=== PATIENT | male | born 2000 | race Hispanic/Latino ===

== ENCOUNTER 2021-04-05 01:52 | Emergency (ER) | payer SELFPAY ==
[~2021-04-05] VITALS: Ht 182.9 cm; Wt 129.3 kg
[2021-04-05 02:12] VITALS: BP 146/92
[2021-04-05] MEDS ORDERED: FAMOTIDINE 20MG VIAL IV ONE ×2 (02:30→02:39)
[2021-04-05] MEDS ORDERED: ALBUTEROL 0.083% 2.5 MG/3 ML INH IH ONE ×2 (02:30→04:00)
[2021-04-05] MEDS ORDERED: DiphenhydrAMINE HCL 50 MG/ML VIAL IV ONE (02:30)
[2021-04-05] MEDS ORDERED: SOLU-MEDROL 125MG VIAL IVP ONE (02:30)
[2021-04-05] MEDS ORDERED: SOLU-MEDROL 125MG VIAL ONE (02:39)
[2021-04-05] MEDS ORDERED: DiphenhydrAMINE HCL 50 MG/ML VIAL ONE (02:39)
[2021-04-05 03:35] VITALS: BP 133/81
[2021-04-05] MEDS ORDERED: PREDNISONE 20 MG TABLET PO ONE (04:00)
[2021-04-05] MEDS ORDERED: ALBU8.5H8 IH (04:52)
[2021-04-05] MEDS ORDERED: PRED20TA3 PO (04:52)
== END 2021-04-05 04:58 | disposition home or self-care (01) ==
LOC: EDH 02:08
DX: T78.49XA Other allergy, initial encounter (principal); H02.843 Edema of right eye, unspecified eyelid; H02.846 Edema of left eye, unspecified eyelid; J45.909 Unspecified asthma, uncomplicated; Z79.899 Other long term (current) drug therapy; X58.XXXA Exposure to other specified factors, initial encounter
CPT/HCPCS: 94640 ×2; 96374; 96375; 99285; J1200; J2930; J3490